=== PATIENT | female | born 1995 | race Caucasian/White ===

== ENCOUNTER 2016-06-09 20:32 | Outpatient (CLI) | payer MEDICAID ==
[~2016-06-09] VITALS: Ht 170.2 cm; Wt 86.4 kg
[~2016-06-09 20:32] MED LIST: ADDERALL XR20 MG PO; ADDERALL20 MG PO; ALLEGRA60 MG PO
[2016-06-09 20:50] VITALS: BP 125/81; PULSE 109; TEMP 98.3
[2016-06-09 21:07] VITALS: BP 125/81; PULSE 109; TEMP 98.3
[2016-06-09 22:00] VITALS: BP 133/79; PULSE 81
== END 2016-06-09 22:15 | disposition home or self-care (01) ==
LOC: LDRO 20:32
DX: O36.8130 Decreased fetal movements, third trimester, not applicable or unspecified (principal); Z3A.39 39 weeks gestation of pregnancy

== ENCOUNTER → 2019-01-02 | Day surgery (SDC) | payer MEDICAID ==
[~2019-01-02] VITALS: Ht 167.6 cm; Wt 70.5 kg
[2019-01-02] VITALS (8 sets, daily range): BP systolic 86–119; BP diastolic 41–75; PULSE 60–86; TEMP 97.9–98.1
[~2019-01-02] MED LIST changes: +MOTRIN 800800 MG/TAB PO; +ZOFRAN8 MG PO
--- NOTE | 2019-01-02 12:35 | NUR ---
TO RM 1 PER CART FROM [facility]. ALERT ORIENTED X3 TALKING WITH STAFF. DENIES PAIN, AND DENIES N/V. RECEIVED WATER AND TAKING SIPS. DR GUILLEN TALKED TO ON THE PHONE.
--- NOTE | 2019-01-02 12:50 | NUR ---
CONTINUES TO REST QUIETLY WITH NO CHANGES.
--- NOTE | 2019-01-02 13:05 | NUR ---
OFFERED PATIENT SOMETHING MORE TO DRINK OR EAT AND SHE DENIES WANTING ANYTHING ELSE.
--- NOTE | 2019-01-02 13:35 | NUR ---
C/O FEELING " LITTLE NAUSEA" AND SMALL CHILDREN ARE IN THE WAITING RM.
--- NOTE | 2019-01-02 13:43 | NUR ---
RECEIVED ZOFRAN 4MG IV
--- NOTE | 2019-01-02 14:00 | NUR ---
WHEN PATIENT UP TO GO BATHROOM. BLOOD NOTED ON BUTTOCKS AND ON HER BACK. 1/2 OF PAD SATURATED WITH BOOD.
--- NOTE | 2019-01-02 14:00 | NUR ---
AMBULATED TO BATHROOM. CHANGED PAD AND GOOD PERICARE. BLOOD NOTED IN TOILET. QUARTER SIZED BLOOD NOTED ON WIPE WITH CHRISTIN CARE.
--- NOTE | 2019-01-02 14:10 | NUR ---
AMBULATED BACK TO BED. DENIES NAUSEA AND STATED SHE IS FEELING MUCH BETTER. RECEIVED CRACKERS.
--- NOTE | 2019-01-02 14:27 | NUR ---
WENT TO CHECK ON PATIENT AND SHE WAS HAVING EMESIS. PATIENT HAD 150CC LIGHT YELLOW EMESIS. AFTER EMESIS- RECEIVED COOL WASH CLOTHE AND ORAL CARE. PATIENT THEN STATED SHE FELT MUCH BETTER.
--- NOTE | 2019-01-02 14:40 | NUR ---
PATIENT STATED SHE FELT LIKE SHE WAS READY TO GO HOME DENIES NAUSEA AND DENIES PAIN OR DISCOMFORT PERIPAD HAS DRAINAGE OF 1/2 OF A LIGHT PAD.
--- NOTE | 2019-01-02 14:45 | NUR ---
RECEIVED DISCHARGE INSTRUCTIONS AND VERBALIZED UNDERSTANDING WITH AT BEDSIDE. DISCONTINUED IV AND INT-CATHETER INTACT.
--- NOTE | 2019-01-02 15:13 | NUR ---
DISCHARGED PER WC BY NURSING STAFF TO PRIVATE CAR IN CARE OF .
== END ==
LOC: SDCO 10:00
DX: O02.0 Blighted ovum and nonhydatidiform mole (principal); Z91.018 Allergy to other foods; Z91.011 Allergy to milk products; J45.909 Unspecified asthma, uncomplicated; Z80.0 Family history of malignant neoplasm of digestive organs; Z80.8 Family history of malignant neoplasm of other organs or systems
CPT/HCPCS: J0690; J2210; J2405; J2704; J3010; J7120

== ENCOUNTER 2019-01-12 21:17 | Outpatient (CLI) | payer MEDICAID ==
[~2019-01-12] VITALS: Ht 167.6 cm; Wt 70.5 kg
[2019-01-12 19:58] LABS: BASO % 0.5 % (0.0-2.0); EOS # 0.3 (0.0-0.7); EOS % 3.3 % (0-4.0); GRAN # 5.5 (1.4-6.5); LYMPH # 1.7 (1.2-3.4); MEAN CELL VOLUME 91 fl (80.0-100.0); MEAN CORPUSCULAR HGB CONC 34 g/dl (33.0-37.0); MEAN PLATELET VOLUME 8.9 fl (7.4-10.4); MONO # 0.4 (0.1-0.6); MONO % 4.6 % (1.7-9.3); PLATELET COUNT 289 K/mm3 (130-400); RED BLOOD COUNT 3.05 M/mm3 (4.10-5.30); REDCELL DISTRIBUTION WIDTH-CV 13.8 % (11.5-14.5)
[2019-01-12 20:01] LABS: HEMATOCRIT 27.7 % (37.0-47.0); HEMOGLOBIN 9.4 g/dl (12.5-16.0); MEAN CORPUSCULAR HEMOGLOBIN 31 pg (27.0-31.0)
[2019-01-12 20:12] LABS: ALBUMIN 3.4 gm/dL (3.5-5.0); BILIRUBIN,TOTAL 0.2 mg/dL (0.0-1.0); CALCIUM 8.2 mg/dL (8.4-10.2); CREATININE, serum 0.51 (0.52-1.25); POTASSIUM 3.7 mmol/L (3.4-5.0); TOTAL PROTEIN 6.4 gm/dL (6.4-8.2)
[~2019-01-12 21:17] MED LIST changes: +CEPHALEXIN500 M1 PO; +DOXYCYCLINE HY100 MG PO
--- NOTE | 2019-01-12 21:30 | NUR ---
0- Patient ambulatory from ED to [facility] OR for repeat D&C per . Patient positioned in lithotomy with stirrups and prepped for procedure. 2144- present for surgical prep in OR. 2210- Patient transported to OB unit via bed. AOx4. VSS. Patient's at bedside. Patient given water and crackers per request. 2230- VSS. Fundus firm. 2300- VSS. Patient is requesting to go home at this time. 2330- VSS. Patient up and ambulatory to restroom to void and change into clothes for discharge. Fundus firm with minimal bleeding. 2345- Discharge instructions explained to patient and . Patient to follow up with [facility] tomorrow per . 2359- Patient and ambulatory off unit.
[2019-01-12 22:15] VITALS: BP 106/34; PULSE 84; TEMP 98.2
[2019-01-12 22:30] VITALS: BP 103/58; PULSE 73
[2019-01-12 22:45] VITALS: BP 102/84; PULSE 76
[2019-01-12 23:00] VITALS: BP 105/58; PULSE 75; TEMP 98.2
[2019-01-12 23:30] VITALS: BP 109/62; PULSE 71
[2019-01-12 23:59] VITALS: BP 117/57; PULSE 90; TEMP 98.1
== END 2019-01-12 23:59 | disposition home or self-care (01) ==
LOC: OB 21:17 → LDRO 21:17 → COL.ER 21:17 → EDSTATUS 21:54 → OB 23:59
PROVIDERS: Emergency Medicine
DX: O08.1 Delayed or excessive hemorrhage following ectopic and molar pregnancy (principal); O02.0 Blighted ovum and nonhydatidiform mole; J45.909 Unspecified asthma, uncomplicated; Z80.0 Family history of malignant neoplasm of digestive organs
CPT/HCPCS: OP; J0690; J1885; J2405; J2704; J3010; J7030; J7120

== ENCOUNTER 2023-01-16 21:41 | Emergency (ER) | payer MEDICAID ==
[~2023-01-16] VITALS: Ht 167.6 cm; Wt 86.4 kg
[2023-01-16 21:46] VITALS: TEMP 97.8
[2023-01-16] MEDS ORDERED: NORCO 325 MG-51 TAB PO ×3 (22:32→22:50)
[2023-01-16 23:03] VITALS: BP 116/80; PULSE 78
== END 2023-01-16 23:03 | disposition home or self-care (01) ==
LOC: COL.ER 21:41
DX: S93.401A Sprain of unspecified ligament of right ankle, initial encounter (principal); W01.0XXA Fall on same level from slipping, tripping and stumbling without subsequent striking against object, initial encounter; X50.1XXA Overexertion from prolonged static or awkward postures, initial encounter

== ENCOUNTER → 2023-08-12 | Outpatient (CLI) | payer MEDICAID ==
[~2023-08-12] MED LIST changes: +NORCO 325 MG-51 TAB PO
== END ==
LOC: MC.RAD 08:46
DX: N63.22 Unspecified lump in the left breast, upper inner quadrant (principal)